=== PATIENT | male | born 1980 | race Two or more races ===

== ENCOUNTER 2021-08-23 10:36 | Emergency (ER) | payer SELFPAY ==
[~2021-08-23] VITALS: Ht 165.1 cm; Wt 74.8 kg
[2021-08-23 11:17] VITALS: BP 126/78
[2021-08-23 11:37] LABS: Urine Bacteria NONE SEEN /hpf (None Seen); Urine Blood Negative /uL (Negative); Urine Specific Gravity 1.025 (1.001-1.035); Urine WBC <1 /hpf (0 - 3)
== END 2021-08-23 13:44 | disposition home or self-care (01) ==
LOC: ER 10:36
DX: R10.9 Unspecified abdominal pain (principal); K21.9 Gastro-esophageal reflux disease without esophagitis; Z88.8 Allergy status to other drugs, medicaments and biological substances
CPT/HCPCS: 74176; 81001